=== PATIENT | female | born 2005 | race Caucasian/White ===

== ENCOUNTER 2024-12-23 11:40 | Emergency (ER) | payer OTHER ==
[~2024-12-23] VITALS: Ht 175.3 cm; Wt 83.9 kg
[2024-12-23 12:00] VITALS: BP 119/60; TEMP 98.5
[2024-12-23 14:12] VITALS: O2SAT 98
== END 2024-12-23 14:12 | disposition home or self-care (01) ==
LOC: ER 11:46
DX: S06.0XAA Concussion with loss of consciousness status unknown, initial encounter (principal); S09.8XXA Other specified injuries of head, initial encounter; V49.88XA Car occupant (driver) (passenger) injured in other specified transport accidents, initial encounter; Y93.89 Activity, other specified; Y92.415 Exit ramp or entrance ramp of street or highway as the place of occurrence of the external cause; Y99.8 Other external cause status
CPT/HCPCS: 70450-TC